=== PATIENT | male | born 1965 | race Caucasian/White ===

== ENCOUNTER 2023-08-27 10:02 | Day surgery (SDC) | payer BC ==
[~2023-08-27] VITALS: Ht 167.6 cm; Wt 72.3 kg
[~2023-08-27 10:02] MED LIST: EPA FISH OIL1 SGL PO; FLOMAX 0.40.4 MG/CAP PO; LIPITOR 40MG TA40 MG PO; LR 1,000 ML IV SCH; Ondansetron 4 MG/2 ML VIAL IV PRN
[2023-08-27 10:22] VITALS: BP 135/84; PULSE 64; TEMP 97.9
[2023-08-27] MEDS ORDERED: Lidocaine PF 2% (20 MG/ML) 5 ML VIAL ONE (10:56)
[2023-08-27] MEDS ORDERED: fentaNYL 50 MCG/ML 2 ML VIAL ONE (10:56)
[2023-08-27 11:45] VITALS: BP 118/85; PULSE 67; TEMP 97.2
[2023-08-27 12:00] VITALS: BP 100/67; PULSE 55
--- NOTE | 2023-08-27 12:45 | NUR ---
1145- PT RETUNS FROM ENDO PROCEDURE VIA CART AND RN ASSIST TO GI [facility] 5. PT AMBULATES FROM CART TO RECLINER WITH ASSIST. MONITORS ON AND ALARMS SET. CALL LIGHT WITHIN REACH. REPORT RECEIVED FROM CHERYL KHAN. PT ALERT AND ORIENTED. PT REQUEST DRINK. PT DENIES ANY PAIN OR NAUSEA. 1200- PT TOLERATING DRINK WELL. NO COMPLICATIONS. 1215- IV DC'D. TIP INTACT. 1220- DISCHARGE INSTRUCTIONS GIVEN TO PT. ALL QUESTIONS ANSWERED. 1230- PT TRANSFERRED OUT OF THE HOSPITAL VIA WHEELCHAIR AND ASSIST TO OWN PERSONAL VEHICLE DRIVEN BY .
== END 2023-08-27 12:30 ==
LOC: SDCO 10:02
DX: Z12.11 Encounter for screening for malignant neoplasm of colon (principal); D12.4 Benign neoplasm of descending colon; D12.5 Benign neoplasm of sigmoid colon; K57.30 Diverticulosis of large intestine without perforation or abscess without bleeding
CPT/HCPCS: J2704; J3010; J7120